=== PATIENT | female | born 1940 | race Caucasian/White ===

== ENCOUNTER 2016-09-16 13:50 | Emergency (ER) | payer OTHER, MEDICARE, BC ==
[~2016-09-16 13:50] MED LIST: ASAB PO; CELEBREX2 PO; CENTRUM PO; CENTRUM TAB1 TAB PO; COREG25 PO; COSAMIN DS1 TAB PO; FISH OIL; FLEX PO; FLEXERIL5 MG PO; LIPITOR10 PO; LIPITOR20 PO; LISINOPRIL40 MG PO; MOBIC7.5 PO; NASACORT; OS500+D PO; PRESERVISION A1 EAC1 PO; PRILO PO; SYN.05 PO; TETRACYCLINE PO; [UNRECOGNIZED DRUG - OTHER]
[2016-09-22] MEDS ORDERED: CELEBREX1 PO (16:52)
[2016-09-22] MEDS ORDERED: NASACORTAQ NAS (16:53)
[2016-09-22] MEDS ORDERED: PRESERVISION A1 EAC1 PO (16:54)
[2016-09-22] MEDS ORDERED: CALCIUM CHEW PO (16:54)
[2016-09-22] MEDS ORDERED: PCET PO (16:55)
[2016-09-22] MEDS ORDERED: MONODOX50 MG PO (16:55)
[2016-09-22] MEDS ORDERED: LIOR10 PO (16:55)
[2016-09-22] MEDS ORDERED: SUCR PO (16:56)
[2016-09-22] MEDS ORDERED: GLUCCHONDR PO (17:07)
== END 2016-09-16 14:07 | disposition home or self-care (01) ==
LOC: ER 13:50
DX: S32.029A Unspecified fracture of second lumbar vertebra, initial encounter for closed fracture (principal); S30.0XXA Contusion of lower back and pelvis, initial encounter; Z85.3 Personal history of malignant neoplasm of breast; Z88.2 Allergy status to sulfonamides; Z88.1 Allergy status to other antibiotic agents; Z88.8 Allergy status to other drugs, medicaments and biological substances; Z79.82 Long term (current) use of aspirin; Z79.899 Other long term (current) drug therapy; V49.9XXA Car occupant (driver) (passenger) injured in unspecified traffic accident, initial encounter
CPT/HCPCS: 72040; 72131; 72170; 96372; 99284; J1885; J2360

== ENCOUNTER 2016-09-29 04:55 | Day surgery (SDC) | payer OTHER, MEDICARE, BC ==
[~2016-09-29 04:55] MED LIST changes: +CALCIUM CHEW PO; +CELEBREX1 PO; +GLUCCHONDR PO; +LIOR10 PO; +MONODOX50 MG PO; +NASACORTAQ NAS; +PCET PO; +SUCR PO
== END 2016-09-29 23:59 | disposition home or self-care (01) ==
LOC: SDC 04:55
PROVIDERS: Orthopaedic Surgery
PROC: 3E0S3BZ Introduction of Anesthetic Agent into Epidural Space, Percutaneous Approach (ICD-10-PCS; 2016-09-29)
PROC: 3E0S33Z Introduction of Anti-inflammatory into Epidural Space, Percutaneous Approach (ICD-10-PCS; principal; 2016-09-29 07:15)
DX: M54.16 Radiculopathy, lumbar region (principal); M54.5 Low back pain; Z98.890 Other specified postprocedural states; E03.9 Hypothyroidism, unspecified; L71.9 Rosacea, unspecified; Z90.12 Acquired absence of left breast and nipple; K21.9 Gastro-esophageal reflux disease without esophagitis; K44.9 Diaphragmatic hernia without obstruction or gangrene; K64.9 Unspecified hemorrhoids; K57.90 Diverticulosis of intestine, part unspecified, without perforation or abscess without bleeding; M19.90 Unspecified osteoarthritis, unspecified site; E78.00 Pure hypercholesterolemia, unspecified; I11.0 Hypertensive heart disease with heart failure; I50.9 Heart failure, unspecified; H91.90 Unspecified hearing loss, unspecified ear; Z86.73 Personal history of transient ischemic attack (TIA), and cerebral infarction without residual deficits; G43.909 Migraine, unspecified, not intractable, without status migrainosus; Z85.3 Personal history of malignant neoplasm of breast; Z98.41 Cataract extraction status, right eye; Z98.42 Cataract extraction status, left eye; Z96.1 Presence of intraocular lens; Z90.89 Acquired absence of other organs; Z92.21 Personal history of antineoplastic chemotherapy; Z92.3 Personal history of irradiation; Z88.2 Allergy status to sulfonamides; Z88.6 Allergy status to analgesic agent; Z88.1 Allergy status to other antibiotic agents; Z79.899 Other long term (current) drug therapy; Z79.891 Long term (current) use of opiate analgesic; Z79.82 Long term (current) use of aspirin; Z79.1 Long term (current) use of non-steroidal anti-inflammatories (NSAID)
CPT/HCPCS: J1040; J2250; J3010; Q9967

== ENCOUNTER 2016-11-25 04:56 | Day surgery (SDC) | payer MEDICARE, BC | END 2016-11-25 10:19 | disposition home or self-care (01) | LOC: SDC 04:56 | PROVIDERS: Orthopaedic Surgery | PROC: B01BZZZ Fluoroscopy of Spinal Cord (ICD-10-PCS; 2016-11-25) | PROC: 3E0R3BZ Introduction of Anesthetic Agent into Spinal Canal, Percutaneous Approach (ICD-10-PCS; principal; 2016-11-25 08:00) | DX: M54.16 Radiculopathy, lumbar region (principal); E03.9 Hypothyroidism, unspecified; K21.9 Gastro-esophageal reflux disease without esophagitis; G43.909 Migraine, unspecified, not intractable, without status migrainosus; M19.90 Unspecified osteoarthritis, unspecified site; E78.00 Pure hypercholesterolemia, unspecified; I11.0 Hypertensive heart disease with heart failure; I50.9 Heart failure, unspecified; I42.9 Cardiomyopathy, unspecified; Z88.2 Allergy status to sulfonamides; Z88.8 Allergy status to other drugs, medicaments and biological substances; Z79.82 Long term (current) use of aspirin; Z79.899 Other long term (current) drug therapy; Z98.41 Cataract extraction status, right eye; Z98.42 Cataract extraction status, left eye; Z98.890 Other specified postprocedural states; Z86.73 Personal history of transient ischemic attack (TIA), and cerebral infarction without residual deficits | CPT/HCPCS: J1040; J2250; J3010; Q9967 ==